=== PATIENT | female | born 1930 | race Caucasian/White ===

== ENCOUNTER → 2016-05-24 | Outpatient (CLI) | payer MEDICARE, BC ==
[~2016-05-24] MED LIST: CHOL4PAC23 PO; CITA20TA17 PO; DONE10TA PO; HYDR-4246 PO; HYPR15DR3 OP; KETO5DRO70 OP; LACTAID3000 UNI2 PO; LISI-621 PO; LOPE2CAP PO; LORA0.5T86 PO; MEMA10TA12 PO; PETR3.5O; SIME125T8 PO
[2016-05-24 12:56] LABS: BLOOD, URINE NEGATIVE (NEGATIVE); COLOR,URINE YELLOW (YELLOW); LEUKOCYTE ESTERASE ,URINE 2+ (NEGATIVE); NITRITE,URINE POSITIVE (NEGATIVE); UROBILINOGEN,URINE 0.2 EU/DL (NORMAL)
[2016-05-24 13:37] LABS: SQUAMOUS EPITHELIAL CELL,UR 20-50
[2016-05-24 13:38] LABS: RBC,URINE NONE SEEN /HPF (0-3)
[2016-05-24 13:39] LABS: BACTERIA,URINE 1+ (NEGATIVE)
== END ==
LOC: LABN.PM 12:50
PROVIDERS: ATTEND Family Medicine
DX: N39.0 Urinary tract infection, site not specified (principal)
CPT/HCPCS: 81001; 87077; 87086; 87186